=== PATIENT | male | born 1980 | race Caucasian/White ===

== ENCOUNTER → 2020-06-27 | Outpatient (CLI) | payer OTHER ==
--- NOTE | 2020-06-30 10:08 | RAD ---
EXAM DESCRIPTION: Foot,Right 3 Views CLINICAL HISTORY: 39 years Male, PAIN IN RT FOOT COMPARISON: None. TECHNIQUE: 3 view radiographs of the right foot. IMPRESSION: No acute displaced fracture. No dislocation. Normal anatomic alignment of the tarsal bones. Intact Lisfranc joint. Tiny calcaneal enthesophyte at the plantar fascia. No radiographically apparent soft tissue abnormality. Electronically signed by: Onofre Messer MD 06/30/2020 10:07 AM CDT
== END ==
LOC: RAD 14:12
PROVIDERS: ATTEND Family Medicine
DX: M79.671 Pain in right foot (principal)

== ENCOUNTER → 2020-07-22 | Outpatient (CLI) | payer OTHER ==
--- NOTE | 2020-07-23 09:20 | MRI ---
EXAM DESCRIPTION: Brain w/wo Contrast CLINICAL HISTORY: SENSORINEURAL HEARING LOSS COMPARISON: None. TECHNIQUE: Multiplanar high-field unit, multiple conventional sequences through the IACs, and the brain, before and after 1 mL per 5 kg body weight Dotarem gadolinium IV contrast. No adverse reactions. FINDINGS: Normal signal in the IACs with no abnormal enhancement and no mass. No fluid or mass in the mastoid air cells. Normal contour of the cerebellopontine angles with no mass, normal enhancement. Normal FLAIR and T2-weighted signal in the .Periventricular white matter, subcortical white matter, and cortical [place] matter of the cerebrum. Normal contrast enhancement. Normal FLAIR and T2-weighted signal in the basal ganglia. Normal contrast enhancement. Normal signal in the brainstem and cerebellar hemispheres. Normal contrast enhancement. Concordance of the diffusion and non-diffusion sequences with no evidence of acute or subacute infarction. Cortical sulci, ventricles, and other CSF spaces, and the subdural spaces are normally configured. No effacement or displacement. No midline shift. No extra-axial hemorrhage. Normal contrast enhancement. Normal flow signal void in the major vessels of the [place] and venous sinuses. Paranasal sinuses are unremarkable. Pituitary gland occupies most of the sella compartment. Bony calvarium is intact. Base of the cerebellar tonsils is at the level of the foramen magnum. IMPRESSION: 1. No abnormalities noted in the cerebellopontine angles or in the vestibular cochlear nerves or brainstem. No hemorrhage, no mass effect, no abnormal contrast enhancement. 2. Normal MRI scan of the intra-axial and extra-axial brain. 3. Normal noncontrast MRI diffusion study. Electronically signed by: Asael Hanna MD 07/23/2020 9:18 AM CDT
== END | disposition home or self-care (01) ==
LOC: MRI 13:00
PROVIDERS: ATTEND Family Medicine
DX: H90.3 Sensorineural hearing loss, bilateral (principal)